=== PATIENT | female | born 1995 | race African-American/Black ===

== ENCOUNTER 2018-08-15 08:31 | Observation (INO) | payer OTHER, SELFPAY ==
[2018-08-15] MEDS: NIFEdipine 10 MG CAPSULE PO ×4 (09:20→10:27)
--- NOTE | 2018-08-15 10:45 | PM.OBTRLD ---
Visit Information Visit Information Date of evaluation: 08/15/18 On-call OB Provider: Umu Lu Reason for Evaluation: Yes pre-term labor Vital Signs Vital Signs: Blood pressure 112/72, pulse of 90, temperature 36.5? Review of Systems Review of Systems Patient is OB provider is Chelita Masters . Patient has been having increasing contractions. She has been given intermittent nifedipine since [address] Arroyo. She denies any fevers. She denies any signs or symptoms of UTI. She says she is drinking lots of fluids. No leakage of fluid. She has had weeks of abdominal tenderness. It is not changed over the past couple weeks. Good movement. She tried 1 dose of nifedipine at home but continued to contract so came to the hospital. All systems reviewed & are unremarkable except as noted in HPI and below Exam Narrative Exam Narrative: Patient's abdomen is soft with some mild tenderness but no rebound. Extremities are without edema and nontender. Evaluation Evaluation Baseline heart rate: 140 Variability: Moderate (11-25) monitor accelerations: Present monitor decelerations: Absent Contraction Frequency (minutes): 3 Uterine Contraction Intensity: Moderate Category of Tracing: I Cervical dilation (cm): 0 Cervical effacement (%): 0 station: -3 Diagnosis, Plan/Disposition Final Diagnosis (1) Premature uterine contractions: Current Visit: No Status: Acute Plan/Disposition Plan: Patient with contractions that stopped easily with 1 dose of nifedipine. Patient was discharged home to follow up with her primary OB provider. OB Disposition: home
== END 2018-08-15 10:46 | disposition home or self-care (01) ==
PROVIDERS: Admitting Provider Specialist; Family Provider Advanced Practice Midwife; Visit Provider Specialist
DX: O47.9 False labor, unspecified (principal); Z3A.35 35 weeks gestation of pregnancy
CPT/HCPCS: 59025; 59050; G0378; G0379

== ENCOUNTER 2019-05-05 13:48 | Emergency (ER) | payer OTHER, SELFPAY ==
[2019-05-05 13:58] VITALS: BP 120/81; PULSE 60; RESP 16; TEMP 36.8; O2SAT 97; BMI 26.6
[2019-05-05 16:47] LABS: Influenza A - CEPHEID Flu A NEGATIVE (NEGATIVE); Influenza B - CEPHEID Flu B NEGATIVE (NEGATIVE)
[2019-05-05] MEDS: ALBUTEROL HFA PREPACK 1 BOX MISC (17:50)
[2019-05-05 17:51] VITALS: PULSE 65; RESP 16
[2019-05-05 18:23] VITALS: BP 137/82; PULSE 83; O2SAT 97
--- NOTE | 2019-05-05 18:29 | PC.NURSE ---
MDI with spacer teaching completed by RT
--- NOTE | 2019-05-05 22:20 | ED_ITS ---
HPI - URI/Sore Throat <RADHA Liao - Last Filed: 05/05/19 22:44> General Chief Complaint: Upper Respiratory Symptoms Stated Complaint: Fever,cough,stuffy Time Seen by Provider: 05/05/19 14:53 Source: patient Mode of arrival: Ambulatory Limitations: no limitations History of Present Illness HPI Narrative: This is a 23-year-old female, nonsmoker, who presents to ED with her young daughters with chief complain of symptoms for upper respiratory infection. Patient reports she has been having moist green/red mucus cough, sore throat, nasal and head congestion for 3 days. She also developed previous 2 nights of to T-max of 101?. Patient denies chills, diarrhea, urinary symptoms and reports has been hydrating well. Patient denies recent foreign travel or known ill exposure except her infant daughter is having [id number]-[id number] disease. Patient does not have chronic medical conditions except anxiety and depression. LMP 04/24/19. Related Data Allergies Allergy/AdvReac Type Severity Reaction Status Date / Time Penicillins [PENICILLINS] Allergy Intermediate Unverified 05/31/17 12:43 Review of Systems <RADHA Liao - Last Filed: 05/05/19 22:44> Review of Systems Narrative: General: Denies (+) fever, chills, fatigue, malaise, sweats. HEENT: Denies (+) head and sinus congestion, ear pain, sore throat, difficulty swallowing, dizziness. Respiratory: See HPI Cardiovascular: Denies chest pain, palpitations, orthopnea, edema. Gastrointestinal: Denies nausea, vomiting, abdominal pain, diarrhea, constipation, melena. : Denies dysuria, frequency, incontinence, hematuria, urinary retention. Musculoskeletal: Denies weakness, joint pain or bony pain. Skin: Denies rash, skin lesions, or other. Neurologic: Denies weakness, headache, numbness, change in speech, confusion, seizures, incoordination. Psychiatric: No concerning psychosocial issues. 12-point review of systems is negative except for those stated above. Patient History <RADHA Liao - Last Filed: 05/05/19 22:44> Medical History (Updated 05/05/19 @ 22:24 by RADHA Liao) Anxiety (Acute) Depression (Acute) Social History (Updated 05/05/19 @ 22:24 by RADHA Liao) Smoking Status: Never smoker Substance Use Type: does not use Exam <RADHA Liao - Last Filed: 05/05/19 22:44> Narrative Exam Narrative: GEN: Alert, oriented x 3, well appearing and nourished, and in no acute distress. Head: Normal cephalic, atraumatic. No scalp or temporal tenderness, palpable mass or rash. EYES: Pupils are equal, round, and reactive to light and accommodation. Extraocular muscles are intact bilaterally. There is no subconjunctival hemorrhage, exudate and sclera non-icteric. ENT: Bilateral auditory canals and tympanic membranes clear. Hearing grossly intact. Nose without bleeding, purulent discharge or deviation. Turbinates swollen and erythematous with mucoid discharge. Facial sinuses nontender to palpate. Mucous membrane moist, no mucosal lesion. Throat without erythema, tonsillar hypertrophy or exudate. Uvula in midline, airway patent. Hoarse and nasally congested voice during conversation. Neck: Trachea in midline. No JVD, non-tender without lymphadenopathy. No masses or thyroid megaly. Supple, non-tender and no meningeal signs. CARDIAC: Normal regular rate and rhythm without murmurs, gallops, or rubs. No chest wall tenderness. No peripheral edema, cyanosis or pallor. Capillary refill is less than 2 seconds. RESPIRATORY: Lungs are clear to auscultate bilaterally. Frequent nonproductive cough witnessed during exam without wheezes, rales, or rhonchi. No stridor, respiratory distress, increase work of breathing, or accessary muscle used. ABD: Abdomen soft, nontender and non-distended. No guarding or rebound tenderness to palpate. Bowel sounds are normal in all 4 quadrants. There is no palpable masses or organomegaly. EXT: Full painless ROM of all extremities with no loss of sensation, strength, effusion or edema. SKIN: Warm, dry, normal color for patient. No erythema, lesions or rash over visible areas. BACK: Nontender without deformity or crepitance. No flank tenderness. NEUROLOGICAL: Alert and oriented to place, time and person. Sensation and motor function intact bilaterally. No facial droops, dysphasia. PSYCHIATRIC: Good judgement and reason, without hallucinations, abnormal affect or abnormal behaviors during the examination. Initial Vital Signs Initial Vital Signs: Vital Signs Temperature 98.3 F 05/05/19 13:58 Pulse Rate 60 05/05/19 13:58 Respiratory Rate 16 05/05/19 13:58 Blood Pressure 120/81 05/05/19 13:58 Pulse Oximetry 97 05/05/19 13:58 <Abdi Cardoso MD - Last Filed: 05/10/19 17:52> Initial Vital Signs Initial Vital Signs: Vital Signs Temperature 98.3 F 05/05/19 13:58 Pulse Rate 60 05/05/19 13:58 Respiratory Rate 16 05/05/19 13:58 Blood Pressure 120/81 05/05/19 13:58 Pulse Oximetry 97 05/05/19 13:58 Scores <RADHA Liao - Last Filed: 05/05/19 22:44> GCS Maria Luisa coma scale eye opening: Spontaneous Beatty coma scale verbal response: Orientated Maria Luisa coma scale motor response: Obey commands Maria Luisa coma scale total score: 15 Course <RADHA Liao - Last Filed: 05/05/19 22:44> Orders Ordered: Discontinued Medications Albuterol (Ventolin Hfa Prepack) 1 box MISC SEEINSTR ONE Stop: 05/05/19 17:25 Last Admin: 05/05/19 17:50 Dose: 1 box Documented by: TRAVIS Vital Signs Vital signs: Vital Signs - 8 hr 05/05/19 17:51 05/05/19 18:23 Pulse Rate 65 83 Respiratory Rate 16 Blood Pressure [Right Arm] 137/82 Pulse Oximetry 97 <Abdi Cardoso MD - Last Filed: 05/10/19 17:52> Orders Ordered: Discontinued Medications Albuterol (Ventolin Hfa Prepack) 1 box MISC SEEINSTR ONE Stop: 05/05/19 17:25 Last Admin: 05/05/19 17:50 Dose: 1 box Documented by: TRAVIS Vital Signs Vital signs: Vital Signs - 8 hr 05/05/19 17:51 05/05/19 18:23 Pulse Rate 65 83 Respiratory Rate 16 Blood Pressure [Right Arm] 137/82 Pulse Oximetry 97 MDM - URI/Sore Throat <RADHA Liao - Last Filed: 05/05/19 22:44> Differential Diagnosis Differential diagnosis: Likely upper respiratory infection, viral infection, influenza and pharyngitis Medical Records Attestation: I reviewed the patient's medical records. Lab Data Attestation: I reviewed the patient's lab results. Labs: Lab Results 05/05/19 Range/Units 16:11 Influenza A (RT-PCR) Flu a negative (NEGATIVE) Influenza B (RT-PCR) Flu b negative (NEGATIVE) Point of Care Testing Rapid Strep A Negative MDM Narrative Medical decision making narrative: This is a healthy 23-year-old female who presents to ED with upper respiratory infection symptoms for 3 3 days with fever for last couple of nights. Physical exam was unremarkable. Patient is afebrile with stable vital signs. Flu and strep throat swabs were negative. Patient denies known ill contacts or recent foreign travel. Her symptoms are likely from upper respiratory infection secondary to viral etiology. Patient advised supportive care with [id number] Tylenol and or Motrin for fever and discomfort. Advised to take Mucinex for cold symptoms. Discharged to home with albuterol and spacer teaching by RT for frequent non productive cough. Work off note provided and instructed good hand/cough hygiene. Return precautions were discussed with the patient and verbalized understanding and in agreement with treatment plan. <Abdi Cardoso MD - Last Filed: 05/10/19 17:52> Lab Data Labs: Lab Results 05/05/19 Range/Units 16:11 Influenza A (RT-PCR) Flu a negative (NEGATIVE) Influenza B (RT-PCR) Flu b negative (NEGATIVE) Point of Care Testing Rapid Strep A Negative Discharge Plan Departure Patient Disposition: Home Clinical Impression: Acute upper respiratory infection Fever Qualifiers: Fever type: unspecified Qualified Code(s): R50.9 - Fever, unspecified Discharge Date/Time: 05/05/19 18:30 Instructions: DI for Viral Upper Respiratory Infection -- Adult, DI for Fever (Symptom) -- Adult Activity Restrictions/Additional Instructions: You have been diagnosed with [upper respiratory illness likely from viral in origin and fever. Strep throat test and flu test were negative today.]. What to do: *Take your medications as directed. You were provided with albuterol inhaler w ith spacer use teaching. You can use this for short of breath, wheezing, difficulty breathing, frequent cough as needed. Please take gcjn-rth-lcaurvo Tylenol and or Motrin as needed for discomfort and fever. You can use Mucinex DM [id number]-eqymkaw medications for cold symptoms. Please hydrate well, rest and use good hand/cough hygiene to prevent illness to others. *Follow up with your primary care provider in 2-3 days, call for an appointment. Let them know you were seen in the ED and that we asked you to be seen in follow up. *Return to ED if you have any new, worsening, or concerning symptoms, such as [chest pain, breathing difficulty, fever not manage the medication, feeling like fainting, signs of dehydration or any acute concerns]. Referrals: [facility] [Outside] Stand Alone Forms: Work Release Note
== END 2019-05-05 18:30 | disposition home or self-care (01) ==
PROVIDERS: Emergency Provider Nurse Practitioner Family; Family Provider Advanced Practice Midwife
DX: J06.9 Acute upper respiratory infection, unspecified (principal); R50.9 Fever, unspecified
CPT/HCPCS: 87502; 87880; 94640; 99282; 99283